=== PATIENT | female | born 1965 | race Caucasian/White ===

== ENCOUNTER 2017-11-14 10:00 | Day surgery (SDC) | payer OTHER ==
[~2017-11-14 10:00] MED LIST: PROPOFOL INJ 200 MG/20 ML VIAL IV ONE
--- NOTE | 2017-11-14 12:35 | Operative Report ---
Operative Report DATE OF SURGERY: 11/14/17 Operative Report: The risks, benefits and alternatives of the procedure including risks of bleeding, perforation requiring surgery are explained to the patient in detail and informed consent was obtained. Patient was taken back to the endoscopy suite and placed in a left, lateral decubital position. Timeout was called. Propofol medications administered. A rectal examination is done which did not reveal any masses, tears or fissures. An Olympus videoscope was inserted into the patient's rectum. The scope was then carefully advanced all the way to the cecum. The cecum was identified by the usual anatomical landmarks including the ileocecal valve as well as the appendiceal office. Photodocumentation was obtained. The scope was then sequentially pulled back via the rest segments of the colon including the ascending colon, hepatic flexure, transverse colon, splenic flexure, descending colon and finding to the rectosigmoid portions of the colon. Retroflexion maneuvers performed. PREOPERATIVE DIAGNOSIS: Left lower quadrant pain rule out diverticulitis POSTOPERATIVE DIAGNOSIS: Small occasional diverticulum but not associated with any inflammation. 2 polyps that I removed via snare polypectomy. Internal hemorrhoids OPERATION: Colonoscopy with snare polypectomy SURGEON: GRIFFIN LARKIN ANESTHESIA: LMAC TISSUE REMOVED OR ALTERED: As noted above. Polyps were not retrieved. COMPLICATIONS: None. ESTIMATED BLOOD LOSS: None. INTRAOPERATIVE FINDINGS: As described above. PROCEDURE: Patient tolerated the procedure well. Postprocedure complications are noted. Patient discharged in good condition. Discharge date 11/14/2017 Discharge diet: Regular. Discharge activity: Regular. 2-3 week follow-up to discuss findings. 3-5 year surveillance colonoscopy. Patient is instructed to call the office or proceed to the emergency room should there be any further problems or questions.
[2017-11-14 12:36] VITALS: BP 115/75
--- NOTE | 2017-11-14 18:34 | EKG REPORT ---
SEVERITY:- NORMAL ECG - SINUS RHYTHM : Confirmed by: Casey Lai 14-Nov-2017 18:32:42
== END 2017-11-14 12:35 | disposition home or self-care (01) ==
LOC: END 10:00
PROVIDERS: ATTEND Internal Medicine Gastroenterology
PROC: 0DBE8ZX Excision of Large Intestine, Via Natural or Artificial Opening Endoscopic, Diagnostic (ICD-10-PCS; principal; 2017-11-14 13:00)
DX: K63.5 Polyp of colon (principal); K57.30 Diverticulosis of large intestine without perforation or abscess without bleeding; K64.8 Other hemorrhoids; E11.9 Type 2 diabetes mellitus without complications; Z87.891 Personal history of nicotine dependence; Z79.84 Long term (current) use of oral hypoglycemic drugs; Z88.5 Allergy status to narcotic agent
CPT/HCPCS: 45385; 82962; 93005; 93010; J2704; 812

== ENCOUNTER 2020-09-20 08:38 | Emergency (ER) | payer OTHER ==
--- NOTE | 2020-09-20 10:15 | ER Document Report ---
ED General - General Chief Complaint: Abdominal Pain Stated Complaint: ABDOMINAL PAIN,LEFT ARM PAIN Time Seen by Provider: 09/20/20 09:49 Primary Care Provider: FERNANDO SERARNO PA-C [Primary Care Provider] - Follow up as needed GRIFFIN LARKIN MD [ACTIVE STAFF] - Follow up as needed Notes: 55-year-old female obese diabetic presents with multiple complaints most importantly she is here for lower abdominal pain which she describes initially in her left groin lower quadrant radiating to her umbilicus, has been essentiall y steady worse after meals worse at night for the last 8 weeks. She had a 20 pound weight loss as well with intermittent nausea but no diarrhea or fever. She also complains of intermittent chest issues, she is being worked up for hypertrophic cardiomyopathy had a monitor has had 2 ED visits for that, also had a left cranial nerve palsy which was seen and evaluated by ophthalmology already and has had negative brain imaging in that context. She was referred to GI for endoscopy, but is been unable to do that given all her other medical issues. No one is on a CT of her abdomen. She had negative UA last week. She has no postmenopausal bleeding or history of cancer. TRAVEL OUTSIDE OF THE [place] IN LAST 30 DAYS: No - Related Data Allergies/Adverse Reactions: codeine Allergy (Verified 11/14/17 10:59) Rash iodine Allergy (Verified 09/20/20 09:25) Urticaria morphine Allergy (Verified 11/14/17 10:59) "massive headache" Rash procaine [From Novocain] Allergy (Verified 11/14/17 10:59) "heart race really fast" Home Medications: Vitamin D Past Medical History - General Information source: Patient - Social History Smoking Status: Never Smoker Family History: None - Past Medical History Cardiac Medical History: Reports: Hx Hypercholesterolemia, Hx Hypertension Denies: Hx Coronary Artery Disease, Hx Heart Attack Pulmonary Medical History: Reports: Hx Asthma Denies: Hx Bronchitis, Hx COPD, Hx Pneumonia Neurological Medical History: Denies: Hx Cerebrovascular Accident, Hx Seizures Endocrine Medical History: Reports: Hx Diabetes Mellitus Type 2 Musculoskeletal Medical History: Reports Hx Arthritis Past Surgical History: Reports: Hx Gynecologic Surgery - D&C, Hx Tubal Ligation - Immunizations Hx Diphtheria, Pertussis, Tetanus Vaccination: Yes Review of Systems - Review of Systems Notes: REVIEW OF SYSTEMS GEN: Denies fever, chills, weight loss ENT: Denies sore throat, nasal discharge, ear pain EYES: Annular 6 palsy CV: Denies chest pain, palpitations, edema RESP: Denies cough, shortness of breath, wheezing GI: D PI MSK: Denies joint pain/swelling, edema, SKIN: Denies rash, skin lesions LYMPH: Denies swollen glands/lymph nodes NEURO: Denies headache, focal weakness or numbness, dizziness PSYCH: Denies depression, suicidal or homicidal ideation PHYSICAL EXAMINATION General: No acute distress, well-nourished Head: Atraumatic, normocephalic ENT: Mouth normal, oropharynx moist, no exudates or tonsillar enlargement Eyes: Left cranial nerve palsy Neck: No JVD, supple, no guarding CVS: Normal rate, regular rhythm, no murmurs Resp: No resp distress, equal and normal breath sounds bilaterally GI: Nondistended, soft, no tenderness to palpation, no rebound or guarding Ext: No deformities, no edema, normal range of motion in upper and lower ext Back: No CVA or midline TTP Skin: No rash, warm Lymphatic: No lymphadeopathy noted Neuro: Awake, alert. Face symmetric. GCS 15. Cranial nerve palsy moving all extremities. Physical Exam - Vital signs Vitals: Temp Pulse Resp BP Pulse Ox 99.1 F 99 16 133/72 H 99 09/20/20 08:43 09/20/20 08:43 09/20/20 08:43 09/20/20 08:43 09/20/20 08:43 Course - Re-evaluation Re-evalutation: 09/20/20 12:30 Subacute lower abdominal pain. Minimal tenderness on exam normal vital signs. Extensive work-up other than CT scan. We will do that today to rule out diverticulitis mass etc. Still needs lower endoscopy testing Labs are unremarkable imaging is negative - Vital Signs Vital signs: Temp Pulse Resp BP Pulse Ox 98.9 F 94 18 148/82 H 94 09/20/20 13:37 09/20/20 13:37 09/20/20 13:37 09/20/20 13:37 09/20/20 13:37 - Laboratory Result Diagrams: 09/20/20 10:30 09/20/20 10:30 Laboratory results interpreted by me: 09/20/20 09/20/20 09/20/20 10:30 10:30 10:30 Plt Count 146 L Glucose 189 H Total Bilirubin 1.8 H AST 52 H ALT 47 H Total Protein 8.3 H Urine Ketones TRACE H Urine Urobilinogen 2.0 H Ur Leukocyte Esterase MODERATE H - Diagnostic Test Radiology reviewed: Image reviewed, Reports reviewed - IMPRESSION: 1. No acute abnormality in the abdomen or pelvis. 2. Mildly nodular contour of the liver on a background of mild hepatic steatosis. The main portal vein is mildly enlarged. Findings can be seen with hepatic cirrhosis. Clinical correlation and correlation with laboratory values. Radiology results interpreted by me: 09/20/20 13:10 Abdomen/Pelvis CT 09/20/20 09:49 IMPRESSION: 1. No acute abnormality in the abdomen or pelvis. 2. Mildly nodular contour of the liver on a background of mild hepatic steatosis. The main portal vein is mildly enlarged. Findings can be seen with hepatic cirrhosis. Clinical correlation and correlation with laboratory values. 3. Mild splenomegaly, uncertain etiology. 4. Colonic diverticulosis without evidence of diverticulitis. No bowel obstruction or to inflammatory change. 5. Large Bartholin gland cyst. Discharge - Discharge Clinical Impression: Lower abdominal pain Condition: Good Disposition: HOME, SELF-CARE Instructions: Abdominal Pain ([facility]) Additional Instructions: On lab testing and CAT scan you are unable to find a dangerous cause of your abdominal pain, but as we discussed you still need to follow-up with your GI doctor for an endoscopy. Please eat a mild diet keep well-hydrated, use Ensure or other nutrient shakes as needed to maintain nutrition and follow-up with GI as scheduled IMPRESSION: 1. No acute abnormality in the abdomen or pelvis. 2. Mildly nodular contour of the liver on a background of mild hepatic steatosis. The main portal vein is mildly enlarged. Findings can be seen with hepatic cirrhosis. Clinical correlation and correlation with laboratory values. 3. Mild splenomegaly, uncertain etiology. 4. Colonic diverticulosis without evidence of diverticulitis. No bowel obst ruction or to inflammatory change. 5. Large Bartholin gland cyst. Referrals: FERNANDO SERRANO PA-C [Primary Care Provider] - Follow up as needed GRIFFIN LARKIN MD [ACTIVE STAFF] - Follow up as needed
[2020-09-20 11:07] LABS: ABSOLUTE LYMPHOCYTES (AUTO) 2.2 10^3/uL (0.5-4.7); ABSOLUTE MONOCYTES (AUTO) 0.5 10^3/uL (0.1-1.4); ABSOLUTE NEUT (AUTO) 7.5 10^3/uL (1.7-8.2); BASOPHILS % (AUTO) 0.3 % (0-2); EOSINOPHILS % (AUTO) 0.4 % (0-6); HEMATOCRIT 42.5 % (36.0-47.0); HEMOGLOBIN 14.7 g/dL (12.0-15.5); LYMPHOCYTES % (AUTO) 21.1 % (13-45); MEAN CORPUSCULAR HEMOGLOBIN 32.2 pg (27.0-33.4); MEAN CORPUSCULAR HGB CONC 34.7 g/dL (32.0-36.0); MEAN CORPUSCULAR VOLUME 93 fl (80-97); PLATELET COUNT 146 10^3/uL (150-450); RED BLOOD COUNT 4.58 10^6/uL (3.72-5.28); RED CELL DISTRIBUTION WIDTH 12.1 % (11.5-14.0); SEGMENTED NEUTROPHILS % (AUTO) 73.2 % (42-78); TOTAL CELLS COUNTED % (AUTO) 100 %; WHITE BLOOD COUNT 10.3 10^3/uL (4.0-10.5)
[2020-09-20 11:20] LABS: ALBUMIN 4.6 g/dL (3.5-5.0); ALKALINE PHOSPHATASE 115 U/L (38-126); ANION GAP 11 (5-19); ASPARTATE AMINO TRANSFERASE 52 U/L (14-36); BILIRUBIN,DIRECT 0.3 mg/dL (0.0-0.4); BILIRUBIN,TOTAL 1.8 mg/dL (0.2-1.3); BLOOD UREA NITROGEN 11 mg/dL (7-20); CARBON DIOXIDE 25 mmol/L (22-30); CHLORIDE 105 mmol/L (98-107); GLUCOSE 189 mg/dL (75-110); POTASSIUM 4.4 mmol/L (3.6-5.0); TOTAL PROTEIN 8.3 g/dL (6.3-8.2)
[2020-09-20] MEDS ORDERED: DIPHENHYDRAMINE HCL 50 MG/ML VIAL IV ONE (11:46)
[2020-09-20] MEDS ORDERED: FAMOTIDINE INJ/PF 20 MG/2 ML SDV IV ONE (11:46)
[2020-09-20] MEDS ORDERED: METHYLPREDNISOLONE INJ 125 MG/2 ML SDV IV ONE (11:46)
--- NOTE | 2020-09-20 13:05 | RADIOLOGY REPORT (SQ) ---
EXAM DESCRIPTION: CT ABD/PELVIS WITH IV ONLY IMAGES COMPLETED DATE/TIME: 09/20/2020 11:30 am REASON FOR STUDY: LLQ pain divertic? COMPARISON: None. TECHNIQUE: CT scan of the abdomen and pelvis performed using helical scanning technique with dynamic intravenous contrast injection. No oral contrast. Images reviewed with lung, soft tissue, and bone windows. Reconstructed coronal and sagittal MPR images reviewed. Delayed images for evaluation of the urinary system also acquired. All images stored on PACS. All CT scanners at this facility use dose modulation, iterative reconstruction, and/or weight based d osing when appropriate to reduce radiation dose to as low as reasonably achievable (ALARA). [facility]: Dose Right [facility]: CareDose [facility]: Dose Right [facility]: Teradose 4D [facility]: KDS CONTRAST TYPE AND DOSE: contrast/concentration: Isovue 350.00 mmol/ml; Total Contrast Delivered: 94. 0 ml; Total Saline Delivered: 24.5 ml RENAL FUNCTION: GFR > 60. RADIATION DOSE: CT Rad equipment meets quality standard of care and radiation dose reduction techniq ues were employed. CTDIvol: 10.1 - 14.1 mGy. DLP: 1372 mGy-cm.. LIMITATIONS: None. FINDINGS: LOWER CHEST: No significant findings. No nodules or infiltrates. LIVER: Liver has normal size. There is a mildly nodular contour. Mild diffuse hepatic steatosis. N o focal hepatic mass. Hepatic and portal veins are patent. The main portal vein is mildly enlarged measuring 14 mm diameter. No biliary ductal dilation. SPLEEN: Mild splenomegaly with spleen measuring 13.1 x 8.1 x 12.6 cm. PANCREAS: No masses. No significant calcifications. No adjacent inflammation or peripancreatic fluid collections. Pancreatic duct not dilated. GALLBLADDER: No identified stones by CT criteria. No inflammatory changes to suggest cholecystitis. ADRENAL GLANDS: No significant masses or asymmetry. RIGHT KIDNEY AND URETER: No solid masses. No significant calcifications. No hydronephrosis or hyd roureter. LEFT KIDNEY AND URETER: No solid masses. No significant calcifications. No hydronephrosis or hydr oureter. AORTA AND VESSELS: No aneurysm. No dissection. Renal arteries, SMA, celiac without stenosis. RETROPERITONEUM: No retroperitoneal adenopathy, hemorrhage or masses. BOWEL AND PERITONEAL CAVITY: There is sigmoid diverticulosis without evidence of diverticulitis. No bowel obstruction. No bowel wall thickening or inflammatory change. No mass. No ascites or pneumop eritoneum. APPENDIX: Normal. PELVIS: The uterus has normal size and contour. There is a large cystic structure at the vaginal int roitus measuring 4.5 x 3.4 cm on axial images by 5 cm cranial caudal consistent with a Bartholin glan d cyst. The urinary bladder has normal contour. Bilateral calcified pelvic phleboliths. No pelvic adenopathy or fluid. ABDOMINAL WALL: No masses. No hernias. BONES: No significant or acute findings. OTHER: No other significant finding. IMPRESSION: 1. No acute abnormality in the abdomen or pelvis. 2. Mildly nodular contour of the liver on a background of mild hepatic steatosis. The main portal ve in is mildly enlarged. Findings can be seen with hepatic cirrhosis. Clinical correlation and correl ation with laboratory values. 3. Mild splenomegaly, uncertain etiology. 4. Colonic diverticulosis without evidence of diverticulitis. No bowel obstruction or to inflammator y change. 5. Large Bartholin gland cyst. TECHNICAL DOCUMENTATION: JOB ID: [id number] Quality ID # [id number]: Final reports with documentation of one or more dose reduction techniques (e.g., Au tomated exposure control, adjustment of the mA and/or kV according to patient size, use of iterative reconstruction technique) 2010 [employer]- All Rights Reserved Reading location - IP/workstation name: [id number]
[2020-09-20 13:06] LABS: APPEARANCE,URINE SLIGHTLY-CLOUDY; BILIRUBIN,URINE NEGATIVE (NEGATIVE); COLOR,URINE YELLOW; GLUCOSE, URINE NEGATIVE (NEGATIVE); KETONES,URINE TRACE mg/dL (NEGATIVE); LEUKOCYTE ESTERASE,URINE MODERATE (NEGATIVE); NITRITE,URINE NEGATIVE (NEGATIVE); PROTEIN,URINE NEGATIVE (NEGATIVE); URINE SPECIFIC GRAVITY 1.016
[2020-09-20 13:39] VITALS: BP 148/82
== END 2020-09-20 13:37 | disposition home or self-care (01) ==
LOC: ER 08:38
DX: R10.30 Lower abdominal pain, unspecified (principal); E78.00 Pure hypercholesterolemia, unspecified; I10 Essential (primary) hypertension; E11.9 Type 2 diabetes mellitus without complications; Z88.6 Allergy status to analgesic agent
CPT/HCPCS: 99285; 96374; 36415; 83690; 85025; 80053; 81001; 74177; J1200; J2930; S0028

== ENCOUNTER 2020-09-22 21:00 | Emergency (ER) | payer OTHER ==
--- NOTE | 2020-09-22 21:38 | ER Document Report ---
ED Medical Screen (RME) - General Chief Complaint: Chest Pain > 30 Stated Complaint: CHEST PAINS SHORT OF BREATH Time Seen by Provider: 09/22/20 21:37 Primary Care Provider: FERNANDO SERRANO PA-C [Primary Care Provider] - Follow up as needed Mode of Arrival: Wheelchair Information source: Patient Notes: 55-year-old female presented to ED for complaint of chest pain that started yesterday and got much worse today. She states is been all day and she thought it was anxiety or diabetes because she had some shaking but then she started a hard time getting a deep breath and now she actually has chest pain sharp and burning. She is alert oriented respirations regular nonlabored speaking in full sentences. She states 4 weeks ago she had a bad chest pain went to her c ardiologist and they put on a 14-day monitor and then sent her home. She states she was seen here 2 days ago for abdominal pain down the left leg. Will get chest pain protocol today. I have greeted and performed a rapid initial assessment of this patient. A comprehensive ED assessment and evaluation of the patient, analysis of test results and completion of medical decision making process will be conducted by an additional ED providers. TRAVEL OUTSIDE OF THE [place] IN LAST 30 DAYS: No - Related Data Allergies/Adverse Reactions: codeine Allergy (Verified 09/22/20 21:33) Rash iodine Allergy (Verified 09/22/20 21:33) Urticaria morphine Allergy (Verified 09/22/20 21:33) "massive headache" Rash procaine [From Novocain] Allergy (Verified 09/22/20 21:33) "heart race really fast" Past Medical History - Past Medical History Cardiac Medical History: Reports: Hx Hypercholesterolemia, Hx Hypertension Denies: Hx Coronary Artery Disease, Hx Heart Attack Pulmonary Medical History: Reports: Hx Asthma Denies: Hx Bronchitis, Hx COPD, Hx Pneumonia Neurological Medical History: Denies: Hx Cerebrovascular Accident, Hx Seizures Endocrine Medical History: Reports: Hx Diabetes Mellitus Type 2 Musculoskeltal Medical History: Reports Hx Arthritis Past Surgical History: Reports: Hx Gynecologic Surgery - D&C, Hx Tubal Ligation - Immunizations Hx Diphtheria, Pertussis, Tetanus Vaccination: Yes Physical Exam - Vital signs Vitals: Temp Pulse Resp BP Pulse Ox 98.4 F 85 20 147/77 H 92 09/22/20 21:17 09/22/20 21:17 09/22/20 21:17 09/22/20 21:17 09/22/20 21:17 Course - Vital Signs Vital signs: Temp Pulse Resp BP Pulse Ox 98.4 F 85 20 147/77 H 92 09/22/20 21:17 09/22/20 21:17 09/22/20 21:17 09/22/20 21:17 09/22/20 21:17 Doctor's Discharge - Discharge Referrals: FERNANDO SERRANO PA-C [Primary Care Provider] - Follow up as needed
[2020-09-22 22:08] LABS: ABSOLUTE EOSINOPHILS # (AUTO) 0.1 10^3/uL (0.0-0.6); ABSOLUTE LYMPHOCYTES (AUTO) 3.7 10^3/uL (0.5-4.7); ABSOLUTE MONOCYTES (AUTO) 0.7 10^3/uL (0.1-1.4); ABSOLUTE NEUT (AUTO) 7.6 10^3/uL (1.7-8.2); BASOPHILS % (AUTO) 0.3 % (0-2); EOSINOPHILS % (AUTO) 0.4 % (0-6); HEMATOCRIT 42.4 % (36.0-47.0); HEMOGLOBIN 14.7 g/dL (12.0-15.5); LYMPHOCYTES % (AUTO) 30.6 % (13-45); MEAN CORPUSCULAR HEMOGLOBIN 32.1 pg (27.0-33.4); MEAN CORPUSCULAR HGB CONC 34.7 g/dL (32.0-36.0); MEAN CORPUSCULAR VOLUME 92 fl (80-97); MONOCYTES % (AUTO) 5.8 % (3-13); PLATELET COUNT 135 10^3/uL (150-450); RED BLOOD COUNT 4.59 10^6/uL (3.72-5.28); RED CELL DISTRIBUTION WIDTH 11.9 % (11.5-14.0); SEGMENTED NEUTROPHILS % (AUTO) 62.9 % (42-78); TOTAL CELLS COUNTED % (AUTO) 100 %; WHITE BLOOD COUNT 12.2 10^3/uL (4.0-10.5)
[2020-09-22 22:27] LABS: ALBUMIN 4.4 g/dL (3.5-5.0); ALKALINE PHOSPHATASE 118 U/L (38-126); ANION GAP 8 (5-19); ASPARTATE AMINO TRANSFERASE 32 U/L (14-36); BILIRUBIN,TOTAL 1.9 mg/dL (0.2-1.3); BLOOD UREA NITROGEN 16 mg/dL (7-20); CALCIUM 10.7 mg/dL (8.4-10.2); CARBON DIOXIDE 28 mmol/L (22-30); CHLORIDE 103 mmol/L (98-107); GLUCOSE 160 mg/dL (75-110); POTASSIUM 3.5 mmol/L (3.6-5.0); TOTAL PROTEIN 7.8 g/dL (6.3-8.2)
--- NOTE | 2020-09-22 22:43 | RADIOLOGY REPORT (SQ) ---
CHEST X-RAY 2 view on 09/22/2020 at 10:04 PM CLINICAL INDICATION: Chest pain COMPARISON: None FINDINGS: The lungs are clear. Cardiac, hilar and mediastinal contours are within normal limits. Pulmonary vascularity is within normal limits. No bony abnormality is noted. IMPRESSION: No active disease.
[2020-09-23 08:19] VITALS: BP 132/83
--- NOTE | 2020-09-23 08:21 | ER Document Report ---
Entered by VIJI GODINEZ SCRIBE 09/23/20 0717 Acting as scribe for:CINDY ESCALANTE MD ED General - General Chief Complaint: Chest Pain > 30 Stated Complaint: CHEST PAINS SHORT OF BREATH Time Seen by Provider: 09/22/20 21:37 Primary Care Provider: FERNANDO SERRANO PA-C [Primary Care Provider] - Follow up as needed Mode of Arrival: Wheelchair Information source: Patient Notes: This 55 year old female patient presents to the emergency department today with complaints of chest pain. 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 She reports that when the chest pain begins she "can't get her air" and she describes herself hyperventilating. Patient mentions that she thinks she may have a high blood sugar mentioning that "when I put something in my mouth, all of a sudden I start shaking". Patient does mention a fall a few days ago where she "crushed all the blood vessels" in her hands and she seems to think that her chest wall pain could be related to this fall. TRAVEL OUTSIDE OF THE [place] IN LAST 30 DAYS: No - Related Data Allergies/Adverse Reactions: codeine Allergy (Verified 09/22/20 21:33) Rash iodine Allergy (Verified 09/22/20 21:33) Urticaria morphine Allergy (Verified 09/22/20 21:33) "massive headache" Rash procaine [From Novocain] Allergy (Verified 09/22/20 21:33) "heart race really fast" Past Medical History - General Information source: Patient - Social History Smoking Status: Former Smoker Cigarette use (# per day): No Frequency of alcohol use: None Drug Abuse: None Lives with: Family Family History: None - Past Medical History Cardiac Medical History: Reports: Hx Hypercholesterolemia, Hx Hypertension, Other - Hypertrophic cardiomyopathy Pulmonary Medical History: Reports: Hx Asthma Endocrine Medical History: Reports: Hx Diabetes Mellitus Type 2 Musculoskeletal Medical History: Reports Hx Arthritis Past Surgical History: Reports: Hx Gynecologic Surgery - D&C, Hx Tubal Ligation - Immunizations Hx Diphtheria, Pertussis, Tetanus Vaccination: Yes Review of Systems - Review of Systems Constitutional: No symptoms reported EENT: No symptoms reported Cardiovascular: See HPI, Chest pain Respiratory: See HPI, Short of breath Gastrointestinal: No symptoms reported Genitourinary: No symptoms reported Female Genitourinary: No symptoms reported Musculoskeletal: No symptoms reported Skin: No symptoms reported Hematologic/Lymphatic: No symptoms reported Neurological/Psychological: No symptoms reported -: Yes All other systems reviewed and negative Physical Exam - Vital signs Vitals: Temp Pulse Resp BP Pulse Ox 98.4 F 85 20 147/77 H 92 09/22/20 21:16 09/22/20 21:16 09/22/20 21:16 09/22/20 21:16 09/22/20 21:16 - Notes Notes: Physical Exam: General: Alert, appears well. HEENT: Normocephalic. Atraumatic. PERRL. Extraocular movements intact. Oropharynx clear. Neck: Supple. Non-tender. Respiratory: No respiratory distress. Clear and equal breath sounds bilaterally. Point tenderness of the left upper anterior chest wall. Cardiovascular: Regular rate and rhythm. Abdominal: Morbidly obese. Non-tender. No distension. Normal Bowel Sounds. Back: No gross abnormalities. Extremities: Moves all four extremities. Upper extremities: Normal inspection. Normal ROM. Lower extremities: Normal inspection. No edema. Normal ROM. Neurological: Normal cognition. AAOx4. Normal speech. Psychological: Normal affect. Normal Mood. Skin: Warm. Dry. Normal color. Course - Re-evaluation Re-evalutation: 09/23/20 07:21 Patient begins hyperventilating and she describes her shortness of breath and her litany of maladies. Chest x-ray is normal. EKG is normal. Serial cardiac troponins are undetectable. Room air pulse oximetry reading stays at 100%. There is tenderness to palpate left anterior chest wall. It appears the patient has chest wall pain, and suffers from severe anxiety about her health issues. - Vital Signs Vital signs: Temp Pulse Resp BP Pulse Ox 98.2 F 92 28 H 132/83 H 97 09/23/20 08:10 09/23/20 05:54 09/23/20 08:10 09/23/20 08:10 09/23/20 08:01 - Laboratory Result Diagrams: 09/22/20 21:56 09/22/20 21:56 Laboratory results interpreted by me: 09/22/20 09/22/20 21:56 21:56 WBC 12.2 H Plt Count 135 L Potassium 3.5 L Glucose 160 H Calcium 10.7 H Total Bilirubin 1.9 H ALT 39 H - Diagnostic Test Radiology reviewed: Image reviewed, Reports reviewed - Chest x-ray is unremarkable - EKG Interpretation by Me EKG shows normal: Sinus rhythm, [place], Intervals, QRS Complexes, ST-T Waves Rate: Normal - 85 Rhythm: NSR Discharge - Discharge Clinical Impression: Left-sided chest wall pain, Anxiety about health Condition: Stable Disposition: HOME, SELF-CARE Additional Instructions: Chest Wall Pain Your chest pain has been diagnosed as coming from the chest wall. This is often caused by straining the muscles or joints in the chest during physical activity, direct trauma, coughing, or vigorous vomiting. Persons with arthritis are especially prone to this type of pain, due to inflammation of the cartilage joints near the breast bone. Occasionally, no cause can be found. Rest from strenuous physical activity. This kind of chest pain is usually made worse by movement of the chest. Depending on the symptoms, we may recommend medicine such as ibuprofen or Aleve for pain and antiinflammatory effects. If the pain is new, and seems to be due to muscle strain, cold packs can help. Otherwise, apply gentle warmth to the painful area for 15 minutes every hour or two. You should contact the doctor immediately if things change. Further evaluation is needed if you develop a fever or cough, if the nature of the pain changes, or if you become short of breath. Anxiety The physician feels that some of your health problems are being caused by anxiety. Anxiety affects your health in many ways. Anxiety alone can cause palpitations, sweats, chest pains, abdominal pains, shortness of breath, and headaches. It contributes to ulcer disease, high blood pressure, irritable b owel syndrome, and has been shown to cause flare-ups of many other diseases. Anxiety is not a simple disorder to treat. If the anxiety is due to recent life stresses, you may simply need time to "work through" the changes. If the anxiety is due to an underlying unhappiness with yourself or due to psychiatric disturbance, professional help will be needed. Your physician can refer you for further help if needed. Anti-anxiety medication is occasionally given if the stress is acute or if you are having trouble sleeping. Chronic or frequent use of these medications is not a good idea because the body becomes reliant on it, preventing you from dealing with life's normal stresses. RETURN TO THE EMERGENCY ROOM IF ANY NEW OR WORSENING SYMPTOMS. Follow-up with your sales porter as planned for medical clearance for your colonoscopy. Follow-up with your primary care provider to discuss the anxiety issues you are having which are causing these episodes of shortness of breath. RETURN TO THE EMERGENCY ROOM IF ANY NEW OR WORSENING SYMPTOMS. Referrals: FERNANDO SERRANO PA-C [Primary Care Provider] - Follow up as needed I personally performed the services described in the documentation, reviewed and edited the documentation which was dictated to the scribe in my presence, and it accurately records my words and actions.
--- NOTE | 2020-09-23 09:59 | EKG REPORT ---
SEVERITY:- NORMAL ECG - SINUS RHYTHM : Confirmed by: Refugio Love MD 23-Sep-2020 09:58:56
== END 2020-09-23 08:19 | disposition home or self-care (01) ==
LOC: ER 21:00
DX: F41.9 Anxiety disorder, unspecified (principal); R07.89 Other chest pain; J45.909 Unspecified asthma, uncomplicated; E11.9 Type 2 diabetes mellitus without complications; I10 Essential (primary) hypertension; I42.2 Other hypertrophic cardiomyopathy; Z87.891 Personal history of nicotine dependence; Z88.6 Allergy status to analgesic agent; Z88.5 Allergy status to narcotic agent; Z88.4 Allergy status to anesthetic agent
CPT/HCPCS: 36415; 71046; 80053; 84484; 85025; 93005; 93010; 99285

== ENCOUNTER 2020-09-23 18:45 | Emergency (ER) | payer OTHER ==
--- NOTE | 2020-09-23 19:07 | ER Document Report ---
ED Medical Screen (RME) - General Chief Complaint: Flank Pain Stated Complaint: RIGHT FLANK PAIN Primary Care Provider: FERNANDO SERRANO PA-C [Primary Care Provider] - Follow up as needed TRAVEL OUTSIDE OF THE [place] IN LAST 30 DAYS: No - HPI Notes: 09/23/20 19:02 55-year-old female with a history of asthma, type 2 diabetes and diverticulosis presents to the emergency room today for complaints of right upper quadrant abdominal pain, nausea, indigestion that has become progressively worse. She states that Dr. Dixon, field ring assembler, told her to come to the emergency room today for further evaluation. She is on the schedule for an EGD this upcoming Tuesday. patient was seen in the emergency room l this morning for anxiety and chest pain, she did get a CT scan of her abdomen which showed she had diverticulosis as well as an enlarged liver on 09/20/2020. Denies any coffee-ground emesis or melena. Reports her last colonoscopy was 2 years ago. I have greeted and performed a rapid initial assessment of this patient. A comprehensive ED assessment and evaluation of the patient, analysis of test results and completion of the medical decision making process will be conducted by additional ED providers. PHYSICAL EXAMINATION: GENERAL: Well-appearing, well-nourished and in no acute distress. NECK: Normal range of motion CV: s1, s2 regular LUNGS: No respiratory distress abd: RUQ abd pain on palpation. - Related Data Allergies/Adverse Reactions: codeine Allergy (Verified 09/22/20 21:33) Rash iodine Allergy (Verified 09/22/20 21:33) Urticaria morphine Allergy (Verified 09/22/20 21:33) "massive headache" Rash procaine [From Novocain] Allergy (Verified 09/22/20 21:33) "heart race really fast" Past Medical History - Past Medical History Cardiac Medical History: Reports: Hx Hypercholesterolemia, Hx Hypertension Denies: Hx Coronary Artery Disease, Hx Heart Attack Pulmonary Medical History: Reports: Hx Asthma Denies: Hx Bronchitis, Hx COPD, Hx Pneumonia Neurological Medical History: Denies: Hx Cerebrovascular Accident, Hx Seizures Endocrine Medical History: Reports: Hx Diabetes Mellitus Type 2 Musculoskeltal Medical History: Reports Hx Arthritis Past Surgical History: Reports: Hx Gynecologic Surgery - D&C, Hx Tubal Ligation - Immunizations Hx Diphtheria, Pertussis, Tetanus Vaccination: Yes Doctor's Discharge - Discharge Referrals: FERNANDO SERRANO PA-C [Primary Care Provider] - Follow up as needed
--- NOTE | 2020-09-23 19:57 | RADIOLOGY REPORT (SQ) ---
EXAM DESCRIPTION: U/S ABDOMEN LIMITED W/O DOP IMAGES COMPLETED DATE/TIME: 09/23/2020 7:42 pm REASON FOR STUDY: RUQ abd pain, +nausea COMPARISON: None. TECHNIQUE: Dynamic and static grayscale images acquired of the abdomen and recorded on PACS. Additio nal selected color Doppler and spectral images recorded. LIMITATIONS: None. FINDINGS: PANCREAS: No masses. Visualized pancreatic duct normal caliber. LIVER: Increased echogenicity. Somewhat heterogeneous. Somewhat lobular. No definable masses. LIVER VASCULATURE: Normal directional flow of the main portal vein and hepatic veins. GALLBLADDER: No stones. Normal wall thickness. No pericholecystic fluid. ULTRASOUND-DETECTED VASQUEZ'S SIGN: Negative. INTRAHEPATIC DUCTS AND COMMON DUCT: CBD and intrahepatic ducts normal caliber. No filling defects. AORTA: No aneurysm. RIGHT KIDNEY: Normal size, 11.6 cm. Normal echogenicity. No solid or suspicious masses. No hydroneph rosis. No calcifications. PERITONEAL AND RIGHT PLEURAL SPACE: No ascites or effusions. OTHER: No other significant findings. IMPRESSION: Hepatic steatosis. Correlate for cirrhosis. TECHNICAL DOCUMENTATION: JOB ID: [id number] 2010 [employer]- All Rights Reserved Reading location - IP/workstation name: [email or web address]
[2020-09-23 20:30] LABS: APPEARANCE,URINE SLIGHTLY-CLOUDY; BILIRUBIN,URINE NEGATIVE (NEGATIVE); COLOR,URINE YELLOW; GLUCOSE, URINE NEGATIVE (NEGATIVE); KETONES,URINE NEGATIVE (NEGATIVE); LEUKOCYTE ESTERASE,URINE MODERATE (NEGATIVE); NITRITE,URINE NEGATIVE (NEGATIVE); PROTEIN,URINE NEGATIVE (NEGATIVE); URINE SPECIFIC GRAVITY 1.012
--- NOTE | 2020-09-23 20:43 | ER Document Report ---
ED GI/ - General Chief Complaint: Flank Pain Stated Complaint: RIGHT FLANK PAIN Time Seen by Provider: 09/23/20 20:14 Primary Care Provider: FERNANDO SERRANO PA-C [Primary Care Provider] - Follow up as needed Notes: 09/23/20 20:15 (created 09/23/20 20:19) - ED Nursing Note by CINDA WOODRUFF [facility] Num: [id number] : 1965 Patient Age: 55 Assumed care of 55 yo female seen at this ED yesterday for chest pain and SOB, today pt c/o right side lower flank/abd pain. Pt states her MD (Dr. Adam) told her to go to the ED. Pt is a/o x 4, ambulatory w/o assist, NAD noted, MD at bedside, will ctm Initialized on 09/23/20 20:19 - END OF NOTE ED Medical Screen (Nedra Roper) - General Chief Complaint: Flank Pain Stated Complaint: RIGHT FLANK PAIN Primary Care Provider: FERNANDO SERRANO PA-C [Primary Care Provider] - Follow up as needed TRAVEL OUTSIDE OF THE [place] IN LAST 30 DAYS: No - HPI Notes: 09/23/20 19:02 55-year-old female with a history of asthma, type 2 diabetes and diverticulosis presents to the emergency room today for complaints of right upper quadrant abdominal pain, nausea, indigestion that has become progressively worse. She states that Dr. Dixon, heater planer operator, told her to come to the emergency room today for further evaluation. She is on the schedule for an EGD this upcoming Tuesday. patient was seen in the emergency room l this morning for anxiety and chest pain, she did get a CT scan of her abdomen which showed she had diverticulosis as well as an enlarged liver on 09/20/2020. Denies any coffee-ground emesis or melena. Reports her last colonoscopy was 2 years ago. I have greeted and performed a rapid initial assessment of this patient. A comprehensive ED assessment and evaluation of the patient, analysis of test results and completion of the medical decision making process will be conducted by additional ED providers. PHYSICAL EXAMINATION: GENERAL: Well-appearing, well-nourished and in no acute distress. NECK: Normal range of motion CV: s1, s2 regular LUNGS: No respiratory distress abd: RUQ abd pain on palpation. MY NOTES 55-year-old female arrives with her daughter with chief complaint of having right upper quadrant right lower quadrant abdominal pain since May of this year. Patient has a history of diabetes and has been placed on multiple medicines but these all caused hypoglycemia and therefore these have been discontinued. Patient was seen here the prior night with CT of abdomen which were called by radiologist as fatty liver portal vein enlargement splenomegaly and left Bartholin gland cyst. Patient reports she knows about the Bartholin gland cyst because she has had this for a long time. Patient reports she was placed on BuSpar by her BMD Ms. Cedillo today and she took a Pepcid with this and she noticed she woke up with some jitteriness of her hands and low blood sugar. She reports she has had no appetite for several weeks and has had a 22 pound weight loss over 1 year. Patient said she fell on 06 September injuring her right hand twisting her abdomen and injuring her nose with bruising of right and left hand which continues today with tenderness in the right fifth metatarsal. Patient is scheduled by Dr. Herr Tuesday for EGD and colonoscopy. Ultrasound tonight reveals no gallbladder disease but fatty liver and lobular liver. Patient also was noted to have a total bilirubin of 1.9 on 22 September. TRAVEL OUTSIDE OF THE [place] IN LAST 30 DAYS: No - Related Data Allergies/Adverse Reactions: codeine Allergy (Verified 09/22/20 21:33) Rash iodine Allergy (Verified 09/22/20 21:33) Urticaria morphine Allergy (Verified 09/22/20 21:33) "massive headache" Rash procaine [From Novocain] Allergy (Verified 09/22/20 21:33) "heart race really fast" Past Medical History - General Information source: Patient - Social History Smoking Status: Unknown if Ever Smoked Cigarette use (# per day): No Chew tobacco use (# tins/day): No Smoking Education Provided: No Frequency of alcohol use: None Lives with: Family Family History: Reviewed & Not Pertinent, Other - All family with gallbladder disease status post resection and thyroid problems Patient has suicidal ideation: No Patient has homicidal ideation: No - Past Medical History Cardiac Medical History: Reports: Hx Hypercholesterolemia, Hx Hypertension Denies: Hx Coronary Artery Disease, Hx Heart Attack Pulmonary Medical History: Reports: Hx Asthma Denies: Hx Bronchitis, Hx COPD, Hx Pneumonia Neurological Medical History: Denies: Hx Cerebrovascular Accident, Hx Seizures Endocrine Medical History: Reports: Hx Diabetes Mellitus Type 2 Musculoskeletal Medical History: Reports Hx Arthritis Past Surgical History: Reports: Hx Gynecologic Surgery - D&C, Hx Tubal Ligation - Immunizations Hx Diphtheria, Pertussis, Tetanus Vaccination: Yes Review of Systems - Review of Systems Constitutional: No symptoms reported, Weight loss, Recent illness EENT: No symptoms reported Cardiovascular: See HPI, Heart racing Respiratory: No symptoms reported Gastrointestinal: See HPI, Abdominal pain Genitourinary: No symptoms reported Female Genitourinary: No symptoms reported Musculoskeletal: No symptoms reported Skin: No symptoms reported Hematologic/Lymphatic: No symptoms reported Neurological/Psychological: No symptoms reported Physical Exam - Vital signs Vitals: Temp Pulse Resp BP Pulse Ox 98.4 F 105 H 20 158/83 H 97 09/23/20 19:01 09/23/20 19:01 09/23/20 19:01 09/23/20 19:01 09/23/20 19:01 Interpretation: Tachycardic - General General appearance: Appears well, Alert - HEENT Head: Normocephalic, Atraumatic Eyes: Normal Extraocular movements intact: Yes Pupils: PERRL Nerve palsy: No Visual hoyt normal: No Sinus: Normal Nasal: Normal Mucous membranes: Normal Pharynx: Normal Neck: Normal - Respiratory Respiratory status: No respiratory distress Chest status: Nontender Breath sounds: Normal Chest palpation: Normal - Cardiovascular Rhythm: Tachycardia Heart sounds: Normal auscultation Murmur: No - Abdominal Inspection: Obese Distension: No distension Bowel sounds: Normal Tenderness: Tender - RUQ/RLQ tenderness Organomegaly: No organomegaly - Rectal Hemorrhoids: Other - deferred - Genitourinary Bimanuel exam: Other - deferred - Back Back: Normal, Nontender - Extremities General upper extremity: Tender, Normal ROM, Normal temperature, Other - ecchymosis of R>L hand dorsal hematoma 3 cm ratna s/p fall 14 Nov General lower extremity: Normal inspection, Nontender, Normal color, Normal ROM, Normal temperature, Normal weight bearing. No: Eli's sign - Neurological Neuro grossly intact: Yes Cognition: Normal Orientation: AAOx4 [place] Coma Scale Eye Opening: Spontaneous [place] Coma Scale Verbal: Oriented [place] Coma Scale Motor: Obeys Commands [place] Coma Scale Total: 15 Speech: Normal Motor strength normal: LUE, RUE, LLE, RLE Sensory: Normal - Psychological Associated symptoms: Anxious - Skin Skin Temperature: Warm Skin Moisture: Dry Skin Color: Normal Course - Vital Signs Vital signs: Temp Pulse Resp BP Pulse Ox 98.4 F 105 H 20 158/83 H 97 09/23/20 19:01 09/23/20 19:01 09/23/20 19:01 09/23/20 19:01 09/23/20 19:01 - Laboratory Result Diagrams: 09/23/20 21:21 09/23/20 21:21 Laboratory results interpreted by me: 09/23/20 09/23/20 09/23/20 20:00 21:21 21:21 WBC 14.7 H Plt Count 148 L Absolute Neuts (auto) 9.8 H Potassium 3.5 L Glucose 160 H Total Bilirubin 2.0 H ALT 41 H TSH Urine Urobilinogen 2.0 H Ur Leukocyte Esterase MODERATE H 09/23/20 21:21 WBC Plt Count Absolute Neuts (auto) Potassium Glucose Total Bilirubin ALT TSH 5.73 H Urine Urobilinogen Ur Leukocyte Esterase - Diagnostic Test Radiology reviewed: Reports reviewed - KUB reveals gastritis and hand x-ray reveals osteoporosis as per radiologist reading Discharge - Discharge Clinical Impression: Lower abdominal pain, Fatty liver, Gastritis and duodenitis, Thyroid disease, Bartholin cyst Osteoporosis Qualifiers: Osteoporosis type: unspecified Presence of current pathological fracture: unspecified Qualified Code(s): M81.0 - Age-related osteoporosis without current pathological fracture UTI (urinary tract infection) Qualifiers: Urinary tract infection type: acute cystitis Hematuria presence: without hematuria Qualified Code(s): N30.00 - Acute cystitis without hematuria Condition: Stable Disposition: HOME, SELF-CARE Instructions: Urinary Tract Infection ([facility]) Additional Instructions: Follow-up with personal doctor about your thyroid disease. Also follow-up with your doctor about your osteoporosis of hand and bones. Also on x-ray you have gastritis so you should continue with your Pepcid and Prilosec [id number]. Take antibiotics for UTI and Bartholin cyst. Return to ER as needed encourage fluids. your tests for hepatitis C and mononucleosis and cytomegalovirus are pending. Prescriptions: Ciprofloxacin HCl [Cipro 500 mg Tablet] 500 mg PO BID #20 tablet Famotidine [Pepcid 20 mg Tablet] 20 mg PO BID #12 tablet Referrals: FERNANDO SERRANO PA-C [Primary Care Provider] - Follow up as needed
--- NOTE | 2020-09-23 21:44 | RADIOLOGY REPORT (SQ) ---
EXAM DESCRIPTION: XR HAND 1-2 VIEWS COMPLETED DATE/TME: 09/23/2020 21:07 CLINICAL HISTORY: 55 years, Female, hand pain COMPARISON: None. TECHNIQUE: AP and lateral views of the right hand. FINDINGS: Suspected mild osteoporosis. No obvious fracture dislocation. No obvious arthritic changes. No suspicious focal soft tissue abnormality. IMPRESSION: Suspected mild osteoporosis. No obvious acute findings. copyright 2010 [employer]- All Rights Reserved
--- NOTE | 2020-09-23 21:46 | RADIOLOGY REPORT (SQ) ---
EXAM DESCRIPTION: XR ABDOMEN 1 VIEW (KUB) COMPLETED DATE/TME: 09/23/2020 21:07 CLINICAL HISTORY: 55 years, Female, abd pain COMPARISON: None. TECHNIQUE: Supine KUB FINDINGS: Question mild gastritis. No suspicious bowel dilatation or thickening. No obvious soft tissue abnormalities. IMPRESSION: Question mild gastritis. Otherwise negative study.
[2020-09-23 21:49] LABS: ABSOLUTE EOSINOPHILS # (AUTO) 0.1 10^3/uL (0.0-0.6); ABSOLUTE LYMPHOCYTES (AUTO) 3.9 10^3/uL (0.5-4.7); ABSOLUTE MONOCYTES (AUTO) 0.8 10^3/uL (0.1-1.4); ABSOLUTE NEUT (AUTO) 9.8 10^3/uL (1.7-8.2); BASOPHILS % (AUTO) 0.3 % (0-2); EOSINOPHILS % (AUTO) 0.7 % (0-6); HEMATOCRIT 42.8 % (36.0-47.0); HEMOGLOBIN 14.8 g/dL (12.0-15.5); LYMPHOCYTES % (AUTO) 26.7 % (13-45); MEAN CORPUSCULAR HEMOGLOBIN 32.3 pg (27.0-33.4); MEAN CORPUSCULAR HGB CONC 34.5 g/dL (32.0-36.0); MEAN CORPUSCULAR VOLUME 93 fl (80-97); MONOCYTES % (AUTO) 5.5 % (3-13); PLATELET COUNT 148 10^3/uL (150-450); RED BLOOD COUNT 4.58 10^6/uL (3.72-5.28); RED CELL DISTRIBUTION WIDTH 11.9 % (11.5-14.0); SEGMENTED NEUTROPHILS % (AUTO) 66.8 % (42-78); TOTAL CELLS COUNTED % (AUTO) 100 %; WHITE BLOOD COUNT 14.7 10^3/uL (4.0-10.5)
[2020-09-23 22:08] LABS: ALBUMIN 4.6 g/dL (3.5-5.0); ALKALINE PHOSPHATASE 121 U/L (38-126); ANION GAP 7 (5-19); ASPARTATE AMINO TRANSFERASE 33 U/L (14-36); BILIRUBIN,DIRECT 0.1 mg/dL (0.0-0.4); BLOOD UREA NITROGEN 11 mg/dL (7-20); CARBON DIOXIDE 28 mmol/L (22-30); CHLORIDE 103 mmol/L (98-107); GLUCOSE 160 mg/dL (75-110); POTASSIUM 3.5 mmol/L (3.6-5.0); TOTAL PROTEIN 8.1 g/dL (6.3-8.2)
[2020-09-23 23:09] VITALS: BP 138/88
[2020-09-25 04:36] LABS: HEPATITS B SURFACE ANTIGEN Negative (Negative)
[2020-09-25 07:17] LABS: HEPATITIS C VIRUS ANTIBODY <0.1 s/co ratio (0.0-0.9)
== END 2020-09-23 23:20 | disposition home or self-care (01) ==
LOC: ER 18:45
DX: K29.70 Gastritis, unspecified, without bleeding (principal); K29.80 Duodenitis without bleeding; N30.00 Acute cystitis without hematuria; K76.0 Fatty (change of) liver, not elsewhere classified; R10.11 Right upper quadrant pain; R10.31 Right lower quadrant pain; R10.811 Right upper quadrant abdominal tenderness; R10.813 Right lower quadrant abdominal tenderness; F41.9 Anxiety disorder, unspecified; J45.909 Unspecified asthma, uncomplicated; E11.9 Type 2 diabetes mellitus without complications; M81.0 Age-related osteoporosis without current pathological fracture; N75.0 Cyst of Bartholin's gland; E07.9 Disorder of thyroid, unspecified; R63.4 Abnormal weight loss; S60.222A Contusion of left hand, initial encounter; S60.221A Contusion of right hand, initial encounter; W19.XXXA Unspecified fall, initial encounter; R00.0 Tachycardia, unspecified; I10 Essential (primary) hypertension; Z88.6 Allergy status to analgesic agent; Z88.5 Allergy status to narcotic agent; Z88.4 Allergy status to anesthetic agent
CPT/HCPCS: 36415; 74018; 76705; 80053; 80074; 81001; 83690; 84443; 85025; 86664; 86665; 99285

== ENCOUNTER 2020-09-28 13:21 | Emergency (ER) | payer OTHER ==
--- NOTE | 2020-09-28 13:47 | ER Document Report ---
ED Medical Screen (RME) - General Stated Complaint: BLOOD SUGAR PROBLEM, BLOOD PRESSURE PROBLEM Time Seen by Provider: 09/28/20 13:37 Primary Care Provider: GRIFFIN LARKIN MD [Primary Care Provider] - Follow up as needed Mode of Arrival: Wheelchair Information source: Patient Notes: HPI; 55-year-old female presents to the emergency room complaining of persistent nausea and abdominal pain. She is scheduled tomorrow for an upper GI as well as a colonoscopy. Patient states she is having difficulty doing the bowel prep that every time she drinks even a small amount and Gatorade she feels like she is going to vomit and pass out. States her blood pressure was elevated this morning and she is having difficulty controlling her blood sugars. Denies any fevers. No recent travel. No COVID-19 exposure. PE: Alert and oriented x3. Lungs: Clear to auscultation without rales, rhonchi, wheezes. Heart: Regular rate rhythm without murmurs, rubs, gallops. I have greeted and performed a rapid initial assessment of this patient. A comprehensive ED assessment and evaluation of the patient, analysis of test results and completion of the medical decision making process will be conducted by additional ED providers. I have specifically instructed the patient or family members with the patient to immediately return to any nursing staff should anything change in the patient's condition or with their chief complaint. TRAVEL OUTSIDE OF THE [place] IN LAST 30 DAYS: No - Related Data Allergies/Adverse Reactions: codeine Allergy (Verified 09/28/20 13:40) Rash iodine Allergy (Verified 09/28/20 13:40) Urticaria morphine Allergy (Verified 09/28/20 13:40) "massive headache" Rash procaine [From Novocain] Allergy (Verified 09/28/20 13:40) "heart race really fast" Past Medical History - Past Medical History Cardiac Medical History: Reports: Hx Hypercholesterolemia, Hx Hypertension Denies: Hx Coronary Artery Disease, Hx Heart Attack Pulmonary Medical History: Reports: Hx Asthma Denies: Hx Bronchitis, Hx COPD, Hx Pneumonia Neurological Medical History: Denies: Hx Cerebrovascular Accident, Hx Seizures Endocrine Medical History: Reports: Hx Diabetes Mellitus Type 2 Musculoskeltal Medical History: Reports Hx Arthritis Past Surgical History: Reports: Hx Gynecologic Surgery - D&C, Hx Tubal Ligation - Immunizations Hx Diphtheria, Pertussis, Tetanus Vaccination: Yes Physical Exam - Vital signs Vitals: Temp Pulse Resp BP Pulse Ox 98.2 F 99 22 H 138/83 H 98 09/28/20 13:29 09/28/20 13:29 09/28/20 13:29 09/28/20 13:29 09/28/20 13:29 Course - Vital Signs Vital signs: Temp Pulse Resp BP Pulse Ox 98.2 F 99 22 H 138/83 H 98 09/28/20 13:29 09/28/20 13:29 09/28/20 13:29 09/28/20 13:29 09/28/20 13:29 Doctor's Discharge - Discharge Referrals: GRIFFIN LARKIN MD [Primary Care Provider] - Follow up as needed
[2020-09-28 14:22] LABS: ABSOLUTE LYMPHOCYTES (AUTO) 2.9 10^3/uL (0.5-4.7); ABSOLUTE MONOCYTES (AUTO) 0.8 10^3/uL (0.1-1.4); BASOPHILS % (AUTO) 0.4 % (0-2); EOSINOPHILS % (AUTO) 0.2 % (0-6); HEMATOCRIT 42.5 % (36.0-47.0); LYMPHOCYTES % (AUTO) 22.6 % (13-45); MEAN CORPUSCULAR HEMOGLOBIN 32.2 pg (27.0-33.4); MEAN CORPUSCULAR HGB CONC 35.4 g/dL (32.0-36.0); MEAN CORPUSCULAR VOLUME 91 fl (80-97); MONOCYTES % (AUTO) 6.1 % (3-13); PLATELET COUNT 145 10^3/uL (150-450); RED BLOOD COUNT 4.66 10^6/uL (3.72-5.28); RED CELL DISTRIBUTION WIDTH 11.9 % (11.5-14.0); SEGMENTED NEUTROPHILS % (AUTO) 70.7 % (42-78); TOTAL CELLS COUNTED % (AUTO) 100 %; WHITE BLOOD COUNT 12.7 10^3/uL (4.0-10.5)
[2020-09-28 14:43] LABS: ALBUMIN 4.5 g/dL (3.5-5.0); ALKALINE PHOSPHATASE 126 U/L (38-126); ANION GAP 11 (5-19); ASPARTATE AMINO TRANSFERASE 43 U/L (14-36); BLOOD UREA NITROGEN 6 mg/dL (7-20); CALCIUM 10.5 mg/dL (8.4-10.2); CARBON DIOXIDE 26 mmol/L (22-30); CHLORIDE 102 mmol/L (98-107); GLUCOSE 186 mg/dL (75-110); POTASSIUM 3.6 mmol/L (3.6-5.0); TOTAL PROTEIN 7.8 g/dL (6.3-8.2)
[2020-09-28 15:15] LABS: APPEARANCE,URINE SLIGHTLY-CLOUDY; BILIRUBIN,URINE NEGATIVE (NEGATIVE); COLOR,URINE YELLOW; GLUCOSE, URINE NEGATIVE (NEGATIVE); KETONES,URINE 20 mg/dL (NEGATIVE); LEUKOCYTE ESTERASE,URINE SMALL (NEGATIVE); NITRITE,URINE NEGATIVE (NEGATIVE); PROTEIN,URINE NEGATIVE (NEGATIVE); UROBILINOGEN,URINE NEGATIVE mg/dL (<2.0)
--- NOTE | 2020-09-28 15:43 | ER Document Report ---
ED General - General Chief Complaint: Dizziness Stated Complaint: BLOOD SUGAR PROBLEM, BLOOD PRESSURE PROBLEM Time Seen by Provider: 09/28/20 13:37 Primary Care Provider: GRIFFIN LARKIN MD [ACTIVE STAFF] - Follow up as needed Mode of Arrival: Wheelchair Notes: CHIEF COMPLAINT: Multiple complaints HPI: 55-year-old female who is diabetic presenting for evaluation of multiple complaints. Patient started a prep for a colonoscopy tomorrow and states that she was feeling somewhat faint so decided to come in for evaluation. States that she has been holding her glipizide secondary to her doctor's recommendations, has been trying to drink fluids but states she feels very fatigued and lethargic. Patient denies chest pain shortness of breath. Denies abdominal pain or vomiting. Patient states that her blood sugars that she has been checking them today have been ranging from 150-250. She states that her blood pressure was fairly elevated today at 159/86. She states this is not normal for her although she has been told in the past that she should watch her blood pressures. She is not on medication for same. ROS: See HPI - all other systems were reviewed and are otherwise negative Constitutional: no fever Eyes: no drainage, no blurred vision ENT: no runny nose, no sore throat Cardiovascular: no chest pain Resp: no SOB, no cough GI: no vomiting, no diarrhea, no abdominal pain : no dysuria Integumentary: no rash Allergy: no hives Musculoskeletal: no extremity pain or swelling Neurological: no numbness/tingling, + fatigue MEDICATIONS: I agree with the patient medications as charted by the RN. ALLERGIES: I agree with the allergies as charted by the RN. PAST MEDICAL HISTORY/PAST SURGICAL HISTORY: Reviewed and agree as charted by RN. SOCIAL HISTORY: Reviewed and agree as charted by RN. FAMILY HISTORY: No significant familial comorbid conditions directly related to patient complaint EXAM: Reviewed vital signs as charted by RN. CONSTITUTIONAL: Alert and oriented and responds appropriately to questions. Well-appearing; well-nourished HEAD: Normocephalic; atraumatic EYES: PERRL; Conjunctivae clear, sclerae non-icteric ENT: normal nose; no rhinorrhea; moist mucous membranes; pharynx without lesions noted, no uvula edema or deviation, no tonsillar hypertrophy, phonation normal NECK: Supple without meningismus; non-tender; no cervical lymphadenopathy, no m asses CARD: RRR; no murmurs, no clicks, no rubs, no gallops; symmetric distal pulses RESP: Normal chest excursion without splinting or tachypnea; breath sounds clear and equal bilaterally; no wheezes, no rhonchi, no rales, pulse oximetry 99% on room air not hypoxic ABD/GI: Normal bowel sounds; non-distended; soft, non-tender, no rebound, no guarding; no palpable organomegaly or masses. BACK: The back appears normal and is non-tender to palpation, there is no CVA tenderness EXT: Normal ROM in all joints; non-tender to palpation; no cyanosis, no effusions, no edema SKIN: Normal color for age and race; warm; dry; good turgor; no acute lesions noted NEURO: Moves all extremities equally; Motor and sensory function intact PSYCH: The patient's mood and manner are appropriate. Grooming and personal hygiene are appropriate. MDM: 55-year-old female very anxious presenting for possibly elevated blood sugars and elevated blood pressure while doing a colonoscopy prep. Will have nursing check orthostatics patient appears well. She was asking about a sore throat she had several days ago where she states she had a mono test at the hospital, I did review her prior records and her EBV is elevated although I will leave this for primary interpretation. Will inform the patient about her resu lts. She is to continue her prep, expect that her blood sugars may continue to be somewhat elevated as she is not taking her glipizide until her colonoscopy is done. If she feels her sugars are low she may use water and sugar to elevate her blood sugars temporarily. She is to continue to hydrate well. TRAVEL OUTSIDE OF THE [place] IN LAST 30 DAYS: No - Related Data Allergies/Adverse Reactions: codeine Allergy (Verified 09/28/20 13:40) Rash iodine Allergy (Verified 09/28/20 13:40) Urticaria morphine Allergy (Verified 09/28/20 13:40) "massive headache" Rash procaine [From Novocain] Allergy (Verified 09/28/20 13:40) "heart race really fast" Past Medical History - General Information source: Patient - Social History Smoking Status: Never Smoker Family History: Reviewed & Not Pertinent, Other - Past Medical History Cardiac Medical History: Reports: Hx Hypercholesterolemia, Hx Hypertension Denies: Hx Coronary Artery Disease, Hx Heart Attack Pulmonary Medical History: Reports: Hx Asthma Denies: Hx Bronchitis, Hx COPD, Hx Pneumonia Neurological Medical History: Denies: Hx Cerebrovascular Accident, Hx Seizures Endocrine Medical History: Reports: Hx Diabetes Mellitus Type 2 Musculoskeletal Medical History: Reports Hx Arthritis Past Surgical History: Reports: Hx Gynecologic Surgery - D&C, Hx Tubal Ligation - Immunizations Hx Diphtheria, Pertussis, Tetanus Vaccination: Yes Physical Exam - Vital signs Vitals: Temp Pulse Resp BP Pulse Ox 98.2 F 99 22 H 138/83 H 98 09/28/20 13:29 09/28/20 13:29 09/28/20 13:29 09/28/20 13:29 09/28/20 13:29 Course - Re-evaluation Re-evalutation: 09/28/20 16:46 Patient was mildly orthostatic. I will give IV fluids. Her other lab work is nonactionable today. Her EBV titers do appear to be positive. She may follow this up through her primary care provider. - Vital Signs Vital signs: Temp Pulse Resp BP Pulse Ox 98.2 F 103 H 22 H 143/79 H 98 09/28/20 13:29 09/28/20 15:25 09/28/20 13:29 09/28/20 15:25 09/28/20 13:29 - Laboratory Result Diagrams: 09/28/20 14:00 09/28/20 14:00 Laboratory results interpreted by me: 09/28/20 09/28/20 09/28/20 14:00 14:00 14:21 WBC 12.7 H Plt Count 145 L Absolute Neuts (auto) 9.0 H BUN 6 L Glucose 186 H Calcium 10.5 H Total Bilirubin 2.0 H AST 43 H ALT 53 H Urine Ketones 20 H Ur Leukocyte Esterase SMALL H Discharge - Discharge Clinical Impression: Dehydration Condition: Stable Disposition: HOME, SELF-CARE Additional Instructions: Continue to hydrate well at home. I believe that you may finish your bowel prep for your procedure tomorrow. Expect that your blood sugars should remain elevated while you are not taking her glipizide. Follow-up with your primary care provider for further evaluation and treatment call for appointment Referrals: GRIFFIN LARKIN MD [ACTIVE STAFF] - Follow up as needed
[2020-09-28] MEDS ORDERED: NORMAL SALINE 1000 ML 1,000 ML IV ONE (15:55)
[2020-09-28 19:00] VITALS: BP 138/83
== END 2020-09-28 18:20 | disposition home or self-care (01) ==
LOC: ER 13:21
DX: E86.0 Dehydration (principal); R42 Dizziness and giddiness; R03.0 Elevated blood-pressure reading, without diagnosis of hypertension; E78.00 Pure hypercholesterolemia, unspecified; E11.9 Type 2 diabetes mellitus without complications; Z88.6 Allergy status to analgesic agent
CPT/HCPCS: 99284; 96360; 96361; 36415; 85025; 80053; 81001; J7030

== ENCOUNTER 2020-09-29 06:54 | Day surgery (SDC) | payer OTHER ==
[2020-09-29] MEDS ORDERED: PROPOFOL INJ 200 MG/20 ML VIAL IV ONE (07:25)
[2020-09-29 09:09] VITALS: BP 117/68
--- NOTE | 2020-09-29 11:57 | Operative Report ---
Operative Report DATE OF SURGERY: 09/29/20 Operative Report: The risk, benefits and alternatives of the procedure including the risk of bleeding, perforation requiring surgery have been explained to the patient in detail and informed consent has been obtained. The patient is taken back to the endoscopy suite and placed in the left, lateral decubital position. Timeout was called. Propofol medication is administered. Rectal examination is done which did not reveal any masses, tears or fissures. An Olympus videoscope was introduced into the patient's rectum. Scope was then carefully advanced all the way to the cecum. The cecum is identified by the usual anatomical landmarks including the ileocecal valve as well as the appendiceal office. Scope was then sequentially pulled back via the various segments of the colon including the ascending colon, hepatic flexure, transverse colon, splenic flexure, descending colon and finally into the rectosigmoid portions of the colon. Retroflexion maneuver is performed. The risks benefits and alternatives of the procedure explained to the patient in detail and informed consent is obtained.A GIF Olympus video scope was inserted into the patient's mouth and hypopharynx, the esophagus is identified intubated and insufflated, the scope was then advanced through the esophagus stomach and duodenum, retroflexion maneuver is done ,the esophagus stomach and first and second portions of the duodenum examined PREOPERATIVE DIAGNOSIS: Change in bowel habits. Nausea vomiting POSTOPERATIVE DIAGNOSIS: Right side colon Inflammation status post biopsy. Diverticulosis no evidence of diverticulitis. Internal hemorrhoids. Gastritis status post biopsy rule out Helicobacter pylori. Duodenitis OPERATION: Colonoscopy with biopsy. EGD with biopsy SURGEON: GRIFFIN LARKIN ANESTHESIA: LMAC TISSUE REMOVED OR ALTERED: As noted above. COMPLICATIONS: None. ESTIMATED BLOOD LOSS: None. INTRAOPERATIVE FINDINGS: As noted above. PROCEDURE: Patient tolerated the procedure well. No immediate postprocedure complications are noted. Patient is discharged in good condition. Discharge date 09/29/2020. Discharge diet: Regular. Discharge activity: Regular. 2 to 3-week follow-up to discuss findings. Patient is instructed to call the office or proceed to the emergency room should there be any further problems or questions. Wait on the pathology.
== END 2020-09-29 09:15 | disposition home or self-care (01) ==
LOC: END 06:54
PROVIDERS: ATTEND Internal Medicine Gastroenterology
DX: K29.50 Unspecified chronic gastritis without bleeding (principal); K64.8 Other hemorrhoids; K29.80 Duodenitis without bleeding; K57.30 Diverticulosis of large intestine without perforation or abscess without bleeding; E11.9 Type 2 diabetes mellitus without complications; Z20.828 Contact with and (suspected) exposure to other viral communicable diseases; Z79.84 Long term (current) use of oral hypoglycemic drugs; Z87.891 Personal history of nicotine dependence; K52.9 Noninfective gastroenteritis and colitis, unspecified
CPT/HCPCS: 43239; 45380; 82962; 87635; 88305 ×2; 00813; J2704; C9803; 813

== ENCOUNTER 2020-10-06 10:34 | Emergency (ER) | payer OTHER ==
[2020-10-06 10:40] VITALS: BP 154/85
--- NOTE | 2020-10-06 11:53 | ER Document Report ---
HPI - HPI Time Seen by Provider: 10/06/20 10:49 Pain Level: Denies Context: Patient is a 55-year-old female presents emergency department with a tick HEENT that happened about 3 months ago. She states that she had multiple work-ups for chest pain, GI symptoms, and this morning she realized that she had an insect bite to her left groin area. She states that she thinks that she was bit by a tick at that time, causing her symptoms of chest pain and GI symptoms. States that she only has some slight tingling in her fingertips. She was placed on antibiotics twice, but never finished the entire course. States that the redness went away. - ROS Systems Reviewed and Negative: Yes All other systems reviewed and negative - CONSTITUTIONAL Constitutional: DENIES: Fever, Chills - EENT EENT: DENIES: Sore Throat, Ear Pain, Nasal Drainage-Clear - NEURO Neurology: DENIES: Headache, Weakness, Vision blurred, Dizzinesss / Vertigo - REPRODUCTIVE Reproductive: DENIES: : - MUSCULOSKELETAL Musculoskeletal: DENIES: Extremity pain - DERM Skin Color: Normal Skin Problems: Rash - Left groin Past Medical History - Social History Smoking Status: Unknown if Ever Smoked Family History: Reviewed & Not Pertinent, Other - Past Medical History Cardiac Medical History: Reports: Hx Hypercholesterolemia, Hx Hypertension Denies: Hx Coronary Artery Disease, Hx Heart Attack Pulmonary Medical History: Reports: Hx Asthma Denies: Hx Bronchitis, Hx COPD, Hx Pneumonia Neurological Medical History: Denies: Hx Cerebrovascular Accident, Hx Seizures Endocrine Medical History: Reports: Hx Diabetes Mellitus Type 2 Musculoskeletal Medical History: Reports Hx Arthritis Past Surgical History: Reports: Hx Gynecologic Surgery - D&C, Hx Tubal Ligation - Immunizations Hx Diphtheria, Pertussis, Tetanus Vaccination: Yes Vertical Provider Document - CONSTITUTIONAL Agree With Documented VS: Yes Exam Limitations: No Limitations General Appearance: No Apparent Distress - INFECTION CONTROL TRAVEL OUTSIDE OF THE [place] IN LAST 30 DAYS: No - HEENT HEENT: Atraumatic, Normocephalic, PERRLA - NECK Neck: Normal Inspection - RESPIRATORY Respiratory: Breath Sounds Normal, No Respiratory Distress - CARDIOVASCULAR Cardiovascular: Regular Rate, Regular Rhythm - GI/ABDOMEN Gastrointestinal: Abdomen Soft, Abdomen Non-Tender - MUSCULOSKELETAL/EXTREMETIES Musculoskeletal/Extremeties: FROM - NEURO Level of Consciousness: Awake, Alert, Appropriate - DERM Integumentary: Warm, Dry, Rash - Left groin, under pannus Course - Re-evaluation Re-evalutation: 10/06/20 11:45 Fabiola RN at bedside for marine insulator. Patient does have some slight erythema, consistent with cellulitis to her left groin. Discussed this case with Dr. Carrillo, my attending. Will place the patient on a course of doxycycline. She will follow-up with her primary care provider. Follow-up precautions were given. Verbal discharge instructions were given to the patient. They verbalized understanding. They are stable for discharge. - Vital Signs Vital signs: Temp Pulse Resp BP Pulse Ox 98.2 F 115 H 18 154/85 H 95 10/06/20 10:39 10/06/20 10:39 10/06/20 10:39 10/06/20 10:39 10/06/20 10:39 - Laboratory Results Critical Laboratory Results Reviewed: No Critical Results - Radiology Results Critical Radiology Results Reviewed: No Critical Results Discharge - Discharge Clinical Impression: Cellulitis Qualifiers: Site of cellulitis: other site Qualified Code(s): L03.818 - Cellulitis of other sites Condition: Stable Disposition: HOME, SELF-CARE Additional Instructions: You were seen today in the emergency department for left groin cellulitis. Take the doxycycline as prescribed. A nurse will call you with the results of your labs. Follow-up with your primary care provider and let them know that you were seen here in the emergency department. Prescriptions: Doxycycline Hyclate [Vibramycin 100 mg Tablet] 100 mg PO BID #20 tablet Referrals: FERNANDO SERRANO PA-C [Primary Care Provider] - Follow up as needed
== END 2020-10-06 11:55 | disposition home or self-care (01) ==
LOC: ER 10:34
DX: L03.314 Cellulitis of groin (principal); I10 Essential (primary) hypertension; E11.9 Type 2 diabetes mellitus without complications; J45.909 Unspecified asthma, uncomplicated
CPT/HCPCS: 36415; 86617; 86618; 99283